=== PATIENT | male | born 1980 | race Caucasian/White ===

== ENCOUNTER 2021-03-04 21:10 | Inpatient (IN) | payer OTHER ==
[2021-03-04] MEDS ORDERED: NALOXONE (NARCAN) HCL 4 MG/0.1 ML SPRAY NS PRN (21:48)
[2021-03-04] MEDS ORDERED: NICOTINE 10 MG CARTRIDGE (INHALER) IH PRN (21:48)
[2021-03-04] MEDS ORDERED: DICYCLOMINE HCL 10 MG CAPSULE PO PRN (21:48)
[2021-03-04] MEDS ORDERED: MAG HYDROX/AL HYDROX/SIMETH 30 ML UNIT-DOSE CUP PO PRN (21:48)
[2021-03-04] MEDS ORDERED: BISMUTH SUBSALICYLATE 524 MG/30 ML PO PRN (21:48)
[2021-03-04] MEDS ORDERED: P-EPHED 60MG/TRIPROLIDI 2.5MG TABLET PO PRN (21:48)
[2021-03-04] MEDS ORDERED: MAGNESIUM CITRATE 300 ML BOTTLE PO PRN (21:48)
[2021-03-04] MEDS ORDERED: MAGNESIUM HYDROX 2400MG/30ML ORAL SUSPENSION 30 ML CUP PO PRN (21:48)
[2021-03-04] MEDS ORDERED: hydrOXYzine PAMOATE 25 MG CAPSULE (FP) PO PRN (21:48)
[2021-03-04] MEDS ORDERED: NALOXONE HCL 0.4 MG/ML VIAL IM PRN (21:48)
[2021-03-04] MEDS ORDERED: MENTHOL/PHENOL 1 EACH UD MM PRN (21:48)
[2021-03-04] MEDS ORDERED: ACETAMINOPHEN 325 MG TABLET (FP) PO PRN ×2 (21:48)
[2021-03-04] MEDS ORDERED: IBUPROFEN 400 MG TABLET (FP) PO PRN (21:48)
[2021-03-04] MEDS ORDERED: guaiFENesin 200 MG/10 ML 10 ML UNIT-DOSE CUPS PO PRN (21:48)
[2021-03-05 00:18] VITALS: BMI 25.3
[2021-03-05] MEDS: METHOCARBAMOL 500 MG TABLET PO PRN (00:46)
[2021-03-05] MEDS: MELATONIN 5 MG TABLETS PO SCH ×2 (00:46→22:11)
[2021-03-05] MEDS: THIAMINE HCL 100 MG TABLET (FP) PO SCH ×2 (00:47→22:11)
[2021-03-05] MEDS ORDERED: clonazePAM 0.5 MG ODT TABLETS SL PRN (09:53)
[2021-03-05] MEDS ORDERED: cloNIDine HCL 0.1 MG TABLET PO PRN (09:53)
[2021-03-05] MEDS ORDERED: diazePAM 5 MG TABLET PO PRN (09:54)
[2021-03-05] MEDS ORDERED: methaDONE HCL 10 MG TABLET (FOR DETOX USE ONLY) PO ONE (10:00)
[2021-03-05] MEDS: PRENATAL VITAMINS W/ FOLIC ACID TABLET (FP) PO SCH (10:29)
[2021-03-05] MEDS: ONDANSETRON *ODT* 4 MG TABLET SL PRN (10:29)
[2021-03-05] MEDS: NICOTINE 14 MG/24 HOURS TOPICAL PATCH TD SCH (10:30)
[2021-03-05 10:57] LABS: HEMATOCRIT 40.6 % (35.4-49); HEMOGLOBIN 13.4 GM/dL (11.7-16.9); MCHC 33.1 g/dl (32.0-35.9); MEAN CELL VOLUME 84.6 fl (80-96); MEAN PLT VOLUME 8.9 fl (7.5-11.1); PLATELET COUNT 236 10^3/uL (134-434); WHITE BLOOD COUNT 8.5 K/mm3 (4.0-10.0)
[2021-03-05 11:09] LABS: ALBUMIN 3.2 g/dl (3.4-5.0); CALCIUM 9.4 mg/dL (8.5-10.1)
[2021-03-05 11:10] LABS: BLOOD UREA NITROGEN 12.1 mg/dL (7-18)
[2021-03-05 11:12] LABS: CREATININE 0.9 mg/dL (0.55-1.3)
[2021-03-05 11:14] LABS: BILIRUBIN,TOTAL 0.5 mg/dL (0.2-1); TOT PROT 6.9 g/dl (6.4-8.2)
[2021-03-06] MEDS ORDERED: methaDONE HCL 10 MG TABLET (FOR DETOX USE ONLY) ONE (09:21)
[2021-03-06] MEDS: PRENATAL VITAMINS W/ FOLIC ACID TABLET (FP) PO SCH (10:14)
[2021-03-06] MEDS: ONDANSETRON *ODT* 4 MG TABLET SL PRN (10:17)
[2021-03-06] MEDS: NICOTINE 14 MG/24 HOURS TOPICAL PATCH TD SCH (10:38)
[2021-03-06] MEDS: MELATONIN 5 MG TABLETS PO SCH (22:09)
[2021-03-06] MEDS: THIAMINE HCL 100 MG TABLET (FP) PO SCH (22:09)
[2021-03-07] MEDS ORDERED: methaDONE HCL 10 MG TABLET (FOR DETOX USE ONLY) PO ONE (10:00)
[2021-03-07] MEDS: METHOCARBAMOL 500 MG TABLET PO PRN (10:33)
[2021-03-07] MEDS: PRENATAL VITAMINS W/ FOLIC ACID TABLET (FP) PO SCH (10:33)
[2021-03-07] MEDS: NICOTINE 14 MG/24 HOURS TOPICAL PATCH TD SCH (10:33)
[2021-03-07] MEDS: MELATONIN 5 MG TABLETS PO SCH (22:43)
[2021-03-07] MEDS: THIAMINE HCL 100 MG TABLET (FP) PO SCH (22:43)
[2021-03-08] MEDS ORDERED: methaDONE HCL 10 MG TABLET (FOR DETOX USE ONLY) ONE (08:55)
[2021-03-08 09:14] VITALS: BP 133/77; PULSE 78; TEMP 97.8
[2021-03-08] MEDS: PRENATAL VITAMINS W/ FOLIC ACID TABLET (FP) PO SCH (12:06)
[2021-03-08] MEDS: NICOTINE 14 MG/24 HOURS TOPICAL PATCH TD SCH (12:06)
[2021-03-09] MEDS ORDERED: methaDONE HCL 10 MG TABLET (FOR DETOX USE ONLY) PO ONE (10:00)
== END 2021-03-08 10:19 | disposition left against medical advice (07) | DRG 770 ==
LOC: YASAS 21:10 → Y3N 23:53
PROVIDERS: ADMIT Allergy & Immunology; ATTEND Allergy & Immunology
PROC: HZ2ZZZZ Detoxification Services for Substance Abuse Treatment (ICD-10-PCS; principal; 2021-03-04)
DX: F11.23 Opioid dependence with withdrawal (principal); F10.20 Alcohol dependence, uncomplicated; F17.213 Nicotine dependence, cigarettes, with withdrawal; Z98.890 Other specified postprocedural states
CPT/HCPCS: 36415; 80053; 85027; 86780; 93005; 93010; C9803; Q0162; U0003; U0005